=== PATIENT | male | born 1955 | race Caucasian/White ===

== ENCOUNTER 2017-04-07 12:11 | Emergency (ER) | payer SELFPAY ==
[~2017-04-07] VITALS: Ht 193 cm; Wt 95.0 kg
[~2017-04-07 12:11] MED LIST: ASPI81TA82 PO; CHLO25 PO
[2017-04-07 12:23] VITALS: BP 230/108; PULSE 85; RESP 16; TEMP 98.4; O2SAT 98
[2017-04-07 12:30] VITALS: BP 211/105; PULSE 78
--- NOTE | 2017-04-07 13:12 | PD ---
HPI Chief Complaint: Altered Mental Status Time Seen by Provider: 12:49 Travel History International Travel<30 days: No Contact w/Intl Traveler<30days: No Traveled to known affect area: No History of Present Illness HPI 61-year-old male presents to the emergency department via EMS with altered mental status. Patient has history of seizures and he has a bite to the left side of his tongue. Says he takes Librium for seizure control and has not taken Librium since October. The patient is alert and oriented 4. The patient was found tow door down at his neighbor's house. He reports taking alcohol daily and reports alcohol use today. His blood pressure is elevated today reports history of hypertension and does not take medication. Denies illicit drug use. Denies hallucinations. Reports tobacco use daily. Reports shortness of breath. Denies chest pain. Denies vomiting. He does not recall his primary care provider's name. He has no known allergies. He has no other medical complaints. No other modifying factors or associated signs and symptoms. PFSH Past Medical History Cardiovascular Problems: No Genitourinary: No Musculoskeletal: No Neurologic: No Reproductive: No Respiratory: No Seizures: Yes Influenza Vaccination: No Past Surgical History Surgical History: No Previous Surgery Social History Alcohol Use: Yes (DAILY) Tobacco Use: Yes (ABOUT 1 PPD) Substance Use: Yes (ETOH ABUSE) Allergies-Medications (Allergen,Severity, Reaction): Coded Allergies: No Known Allergies (Unverified Adverse Reaction, Unknown, 04/07/17) Reported Meds & Prescriptions Reported Meds & Active Scripts Active Chlordiazepoxide HCl 25 Mg Capsule 25 Mg PO DIRECTED 1 pill three times daily x 3 days, then 1 pill twice daily x 2 days, then 1 pill daily x 2 days Review of Systems Except as stated in HPI: all other systems reviewed are Neg Physical Exam Narrative GENERAL: Well-nourished, well-developed male patient, in no acute distress; shakiness noted to both arms SKIN: Warm and dry. HEAD: Atraumatic. Normocephalic. No facial droop noted. Tongue midline. EYES: Pupils equal and round at 4 mm with brisk reaction. No scleral icterus. No injection or drainage. PERRLA. EOMI. ENT: Mucosa pink and moist. Airway patent. MOUTH: Mucous membranes moist, no lesions, and gums appear normal. Left sided tongue bite noted. NECK: Trachea midline. No lymphadenopathy. CARDIOVASCULAR: Regular rate and rhythm. No murmur appreciated. RESPIRATORY: No accessory muscle use. Wheezing throughout to auscultation. Breath sounds equal bilaterally. No retractions or tachypnea. GASTROINTESTINAL: Abdomen soft, non-tender, nondistended. Hepatic and splenic margins not palpable. Bowel sounds are active 4 quadrants. MUSCULOSKELETAL: No obvious deformities. No clubbing. No cyanosis. No edema. NEUROLOGICAL: Awake and alert. Oriented 4. No obvious cranial nerve deficits. Motor grossly within normal limits. Normal speech. No mid-line drift. Moves all extremities. 5/5 strength to all extremities. PSYCHIATRIC: Appropriate mood and affect; insight and judgment normal. Data Data Last Documented VS Vital Signs Date Time Temp Pulse Resp B/P (MAP) Pulse Ox O2 Delivery O2 Flow Rate FiO2 04/07/17 17:35 97.9 88 17 154/86 (108) 98 04/07/17 15:16 Room Air Orders Orders Electrocardiogram (04/07/17 12:30) Complete Blood Count With Diff (04/07/17 13:07) Comprehensive Metabolic Panel (04/07/17 13:07) Urinalysis - C+S If Indicated (04/07/17 13:07) Drug Screen, Random Urine (04/07/17 13:07) Alcohol (Ethanol) (04/07/17 13:07) Chest, Single Ap (04/07/17 13:07) Albuterol Neb (Albuterol Neb) (04/07/17 13:15) Ct Brain W/O Iv Contrast(Rout) (04/07/17 ) Iv Access Insert/Monitor (04/07/17 13:07) Ecg Monitoring (04/07/17 13:07) Oximetry (04/07/17 13:07) Sodium Chloride 0.9% Flush (Ns Flush) (04/07/17 13:15) Prothrombin Time / Inr (Pt) (04/07/17 13:07) Act Partial Throm Time (Ptt) (04/07/17 13:07) Lorazepam Inj (Ativan Inj) (04/07/17 13:30) Sodium Chlor 0.9% 1000 Ml Inj (Ns 1000 M (04/07/17 13:20) Potassium Chloride (Kcl) (04/07/17 15:00) Ed Discharge Order (04/07/17 16:38) Labs Laboratory Tests Test 04/07/17 13:10 04/07/17 13:20 04/07/17 13:40 04/07/17 13:45 Prothrombin Time 10.1 SEC Prothromb Time International Ratio 0.9 RATIO Activated Partial Thromboplast Time 29.7 SEC White Blood Count 6.7 TH/MM3 Red Blood Count 4.50 MIL/MM3 Hemoglobin 14.8 GM/DL Hematocrit 43.1 % Mean Corpuscular Volume 95.9 FL Mean Corpuscular Hemoglobin 32.9 PG Mean Corpuscular Hemoglobin Concent 34.4 % Red Cell Distribution Width 13.7 % Platelet Count 210 TH/MM3 Mean Platelet Volume 7.2 FL Neutrophils (%) (Auto) 68.6 % Lymphocytes (%) (Auto) 18.0 % Monocytes (%) (Auto) 12.7 % Eosinophils (%) (Auto) 0.2 % Basophils (%) (Auto) 0.5 % Neutrophils # (Auto) 4.6 TH/MM3 Lymphocytes # (Auto) 1.2 TH/MM3 Monocytes # (Auto) 0.9 TH/MM3 Eosinophils # (Auto) 0.0 TH/MM3 Basophils # (Auto) 0.0 TH/MM3 CBC Comment DIFF FINAL Differential Comment Blood Urea Nitrogen 19 MG/DL Creatinine 0.74 MG/DL Random Glucose 93 MG/DL Total Protein 7.4 GM/DL Albumin 3.7 GM/DL Calcium Level 8.5 MG/DL Alkaline Phosphatase 52 U/L Aspartate Amino Transf (AST/SGOT) 41 U/L Alanine Aminotransferase (ALT/SGPT) 29 U/L Total Bilirubin 0.6 MG/DL Sodium Level 136 MEQ/L Potassium Level 3.0 MEQ/L Chloride Level 103 MEQ/L Carbon Dioxide Level 25.3 MEQ/L Anion Gap 8 MEQ/L Estimat Glomerular Filtration Rate 107 ML/MIN Ethyl Alcohol Level LESS THAN 3 MG/DL Urine Color YELLOW Urine Turbidity CLEAR Urine pH 6.0 Urine Specific [place] 1.018 Urine Protein 30 mg/dL Urine Glucose (UA) TRACE mg/dL Urine Ketones 40 mg/dL Urine Occult Blood SMALL Urine Nitrite NEG Urine Bilirubin NEG Urine Urobilinogen 2.0 MG/DL Urine Leukocyte Esterase NEG Urine RBC 4 /hpf Urine WBC 1 /hpf Urine Squamous Epithelial Cells <1 /hpf Urine Mucus FEW /lpf Microscopic Urinalysis Comment CULT NOT INDICATED Urine Opiates Screen NEG Urine Barbiturates Screen NEG Urine Amphetamines Screen NEG Urine Benzodiazepines Screen NEG Urine Cocaine Screen NEG Urine Cannabinoids Screen NEG MDM Medical Decision Making Medical Screen Exam Complete: Yes Emergency Medical Condition: Yes Medical Record Reviewed: Yes Differential Diagnosis Seizure, postictal state, altered mental status, electrolyte imbalance, alcohol intoxication, alcohol withdrawal Narrative Course 61-year-old male with history of seizures and alcohol dependence presents with AMS via EMS. Patient is alert and oriented 4 at this time. Neuro exam is unremarkable. Suspecting postictal state and/or alcohol withdrawal. Patient also complaining of shortness of breath and denies chest pain. Lungs with wheezing throughout. No retractions or tachypnea. Patient in no acute distress. I discussed the patient with the attending physician, Dr. Sal, and he agrees with plan of care. Head CT, CBC, CMP, EKG, chest x-ray ordered. Albuterol nebulizer, Ativan ordered. 1452: CBC unremarkable. Potassium 3.0, otherwise CMP unremarkable. Coags unremarkable. Urinalysis without signs of infection. Drug screen negative. EtOH less than 3. Potassium chloride 40 Meq by mouth ordered. 1455: Chest x-ray and head CT concludes: Chest X-Ray 04/07/17 1307 Signed Impressions: Service Date/Time: Friday, April 07, 2017 13:37 - CONCLUSION: Normal examination. Jayson Johnson MD Head CT 04/07/17 0000 Signed Impressions: Service Date/Time: Friday, April 07, 2017 13:56 - CONCLUSION: Normal examination. Jayson Johnson MD 1500: On reexamination the patient is sleeping comfortably in the bed. He is easily arousable and denies shortness of breath at this time. Lungs are clear and equal throughout. 1640: Patient discussed with Dr. Sal and he agrees with discharge; Recommends Librium for discharge. Librium prescribed as instructed by Dr. Sal. Instructed patient to follow up with primary care provider. Patient verbalizes understanding and agreement with treatment plan. Patient is medically cleared and stable for discharge. Discussed reasons to return to the emergency department. Patient agrees with treatment plan. The patients vital signs are stable and the patient is stable for outpatient follow-up and treatment. Patient discharged home, stable and in no acute distress. Diagnosis Primary Impression: possible alcohol withdrawal Additional Impression: possible seizure Referrals: Primary Care Physician Patient Instructions: Abuse of Alcohol (ED), Alcohol Dependence (ED), Alcohol Intoxication (ED), Alcohol Withdrawal (ED), General Instructions Additional Instructions: Drinking alcohol Librium as prescribed Follow-up with [facility] for alcohol withdrawal Follow-up with Alcoholics Anonymous Follow-up with primary care provider Med/Other Pt SpecificInfo: Prescription(s) given Scripts Chlordiazepoxide HCl (Chlordiazepoxide HCl) 25 Mg Capsule 25 MG PO DIRECTED, #15 1 pill three times daily x 3 days, then 1 pill twice daily x 2 days, then 1 pill daily x 2 days Prov: Nena Bay 04/07/17 Disposition: 01 DISCHARGE HOME Condition: Stable Nena Bay Apr 07, 2017 13:12
[2017-04-07 13:15] VITALS: RESP 17; O2SAT 98
[2017-04-07] MEDS ORDERED: SODIUM CHLORIDE 0.9% FLUSH 10 ML FLUSH IV FLUSH PRN (13:15)
[2017-04-07] MEDS ORDERED: RESP: ALBUTEROL 2.5 MG/3 ML NEB (SCH) INH ONE (13:15)
[2017-04-07] MEDS ORDERED: SODIUM CHLOR 0.9% 1000 ML INJ 1,000 ML IV SCH (13:20)
[2017-04-07] MEDS ORDERED: LORazepam 2 MG/ML VIAL IV PUSH ONE (13:30)
[2017-04-07 13:39] LABS: AUTOMATED NEUTROPHIL # 4.6 TH/MM3 (1.8-7.7); BASOPHIL % 0.5 % (0.0-2.0); EOSINOPHIL % 0.2 % (0.0-4.0); HEMATOCRIT 43.1 % (39.0-51.0); HEMO FLAGS DIFF FINAL; LYMPHOCYTE # 1.2 TH/MM3 (1.0-4.8); MEAN CELL VOLUME 95.9 FL (80.0-100.0); MEAN CORPUSCULAR HEMOGLOBIN 32.9 PG (27.0-34.0); MEAN CORPUSCULAR HGB CONC 34.4 % (32.0-36.0); MONO % 12.7 % (0.0-8.0); NEUT % 68.6 % (16.0-70.0); PLATELET COUNT 210 TH/MM3 (150-450); RED CELL DISTRIBUTION WIDTH 13.7 % (11.6-17.2); WHITE BLOOD COUNT 6.7 TH/MM3 (4.0-11.0)
[2017-04-07 13:46] LABS: APTT (PATIENT) 29.7 SEC (24.3-30.1); INTERNATIONAL NORMALIZED RATIO 0.9 RATIO; PROTHROMBIN TIME - PATIENT 10.1 SEC (9.8-11.6)
--- NOTE | 2017-04-07 13:54 | RADRPT ---
EXAM DATE/TIME: 04/07/2017 13:37 [facility] COMPARISON: CHEST SINGLE AP, November 08, 2015, 16:56. INDICATIONS : Wheezing and shortness of breath. MEDICAL HISTORY : None. SURGICAL HISTORY : None. ENCOUNTER: Initial ACUITY: 1 day PAIN SCORE: 0/10 LOCATION: Bilateral chest FINDINGS: A single view of the chest demonstrates the lungs to be symmetrically aerated without evidence of mas s, infiltrate or effusion. The cardiomediastinal contours are unremarkable. Osseous structures are intact. CONCLUSION: Normal examination. Jayson Johnson MD on April 07, 2017 at 13:52 Board Certified Radiologist. This report was verified electronically.
[2017-04-07 14:27] LABS: ANION GAP 8 MEQ/L (5-15); AST (GOT) 41 U/L (15-37); BICARBONATE 25.3 MEQ/L (21.0-32.0); BLOOD UREA NITROGEN 19 MG/DL (7-18); CHLORIDE 103 MEQ/L (98-107); GLOMERULAR FILTRATION RATE 107 ML/MIN (>89); SODIUM (NA) 136 MEQ/L (136-145)
[2017-04-07 14:31] LABS: ALKALINE PHOSPHATASE 52 U/L (45-117); ALT (GPT) 29 U/L (12-78); TOTAL BILIRUBIN ADULT 0.6 MG/DL (0.2-1.0)
[2017-04-07 14:34] LABS: BLOOD, URINE SMALL (NEG); COMMENT (UR) CULT NOT INDICATED; CULTURE IF INDICATED CULT NOT INDICATED; GLUCOSE,URINE TRACE mg/dL (NEG); KETONE, URINE 40 mg/dL (NEG); MUCUS URINE FEW /lpf (OCC); NITRITE,URINE NEG (NEG); SQUAMOUS EPITHELIAL CELL URINE <1 /hpf (0-5); URINE COLOR YELLOW (YELLW/STRAW)
--- NOTE | 2017-04-07 14:34 | RADRPT ---
EXAM DATE/TIME: 04/07/2017 13:56 [facility] COMPARISON: CT BRAIN W/O CONTRAST, November 08, 2015, 17:11. INDICATIONS : Head pain due to altered mental status. RADIATION DOSE: 56.35 CTDIvol (mGy) MEDICAL HISTORY : Seizures. ETOH abuse. SURGICAL HISTORY : None. ENCOUNTER: Initial ACUITY: 1 day PAIN SCALE: 2/10 LOCATION: Bilateral cranial TECHNIQUE: Multiple contiguous axial images were obtained of the head. Using automated exposure control and adj ustment of the mA and/or kV according to patient size, radiation dose was kept as low as reasonably a chievable to obtain optimal diagnostic quality images. DICOM format image data is available electro nically for review and comparison. FINDINGS: CEREBRUM: The ventricles are normal for age. No evidence of midline shift, mass lesion, hemorrhage or acute in farction. No extra-axial fluid collections are seen. POSTERIOR FOSSA: The cerebellum and brainstem are intact. The 4th ventricle is midline. The cerebellopontine angle i s unremarkable. EXTRACRANIAL: The visualized portion of the orbits is intact. SKULL: The calvaria is intact. No evidence of skull fracture. CONCLUSION: Normal examination. Jayson Johnson MD on April 07, 2017 at 14:29 Board Certified Radiologist. This report was verified electronically.
[2017-04-07 14:38] LABS: ALCOHOL LESS THAN 3 MG/DL (0-5)
[2017-04-07 14:43] VITALS: BP 199/94; PULSE 89; RESP 17; TEMP 97.8; O2SAT 97
[2017-04-07] MEDS ORDERED: POTASSIUM CHLORIDE 20 MEQ CONTROLLED RELEASE TAB PO ONE (15:00)
[2017-04-07 15:16] VITALS: BP 184/92; PULSE 87; RESP 17; O2SAT 99
[2017-04-07] MEDS ORDERED: CHLO25CA9 PO ×2 (16:36→16:39)
[2017-04-07 17:35] VITALS: BP 154/86; TEMP 97.9
--- NOTE | 2017-04-08 17:58 | EKG ---
Date Performed: 04/07/2017 Time Performed: 12:36:58 PTAGE: 61 years EKG: Sinus rhythm MINIMAL VOLTAGE CRITERIA FOR LVH, CONSIDER NORMAL VARIANT BORDERLINE ECG PREVIOUS TRACING : 11/09/2015 05.41 Compared to prior tracing no significant change DOCTOR: Skinny Doe Interpretating Date/Time 04/08/2017 17:57:37
== END 2017-04-07 17:35 | disposition home or self-care (01) ==
LOC: NEPE 12:11
DX: R41.82 Altered mental status, unspecified (principal); R56.9 Unspecified convulsions; F10.20 Alcohol dependence, uncomplicated; R06.02 Shortness of breath; F17.200 Nicotine dependence, unspecified, uncomplicated
CPT/HCPCS: 70450; 71010; 80053; 80307; 81001; 85025; 85610; 85730; 93005; 94664; 96361; 96374; 99285; J2060; J7030; J7613

== ENCOUNTER → 2017-07-17 | Outpatient (CLI) | payer OTHER ==
[~2017-07-17] MED LIST changes: -ASPI81TA82 PO; -CHLO25 PO; +CHLO25CA9 PO
--- NOTE | 2017-07-18 08:40 | RSPPFT ---
DATE OF PROCEDURE: 07/17/17 COMMENTS: Spirometry shows FVC of 4.6 at 86% of predicted, FEV1 of 2.8 at 66%, FEV1/FVC ratio is decreased. Flow is decreased at FEF 25, FEF 50, FEF 75 and FEF 25-75. There is no response after bronchodilator treatment. Lung volumes shows residual volume is increased. TLC is normal. Diffusion capacity is decreased. Flow volume loop indicates an obstructive pattern. IMPRESSION: 1. Moderately severe obstructive lung disease. 2. No response after bronchodilator treatment. 3. Lung volumes show hyperinflation. 4. Decreased diffusion capacity.
== END ==
LOC: PHRSP 09:27
PROVIDERS: ATTEND Specialist
DX: J44.9 Chronic obstructive pulmonary disease, unspecified (principal)
CPT/HCPCS: 94060; 94726; 94729